=== PATIENT | female | born 2000 | race Two or more races ===

== ENCOUNTER 2024-09-22 21:49 | Emergency (ER) | payer BC ==
[~2024-09-22] VITALS: Ht 154.9 cm; Wt 68.0 kg
[2024-09-22] MEDS ORDERED: KETOROLAC TROMETHAMINE 60 MG VIAL IM STA (22:52)
== END 2024-09-23 01:28 | disposition home or self-care (01) ==
LOC: ER 21:49
DX: S32.010A Wedge compression fracture of first lumbar vertebra, initial encounter for closed fracture (principal); W17.89XA Other fall from one level to another, initial encounter; Y93.89 Activity, other specified; Y92.89 Other specified places as the place of occurrence of the external cause; Y99.8 Other external cause status; M54.50 Low back pain, unspecified